=== PATIENT | female | born 1980 | race Caucasian/White ===

== ENCOUNTER 2023-04-14 17:26 | Emergency (ER) | payer BC ==
--- NOTE | 2023-04-14 19:15 | NUR ---
CALLED FOR PATIENT, UNABLE TO FIND PATIENT
--- NOTE | 2023-04-14 19:20 | NUR ---
CALLED FOR PATIENT, PATIENT NO WHERE TO BE FOUND
--- NOTE | 2023-04-14 19:25 | NUR ---
CALLED FOR PATIENT, PATIENT NO WHERE TO BE FOUND
--- NOTE | 2023-04-14 19:33 | NUR ---
PATIENT LEFT WITHOUT BEING SEEN
== END 2023-04-14 19:33 | disposition left against medical advice (07) ==
LOC: SED 17:26
DX: H92.01 Otalgia, right ear (principal); Z53.21 Procedure and treatment not carried out due to patient leaving prior to being seen by health care provider